=== PATIENT | female | born 2000 | race Caucasian/White ===

== ENCOUNTER → 2022-03-26 08:54 | Outpatient (BNVA) | payer OTHER, SELFPAY | PROVIDERS: Visit Provider Nurse Practitioner | DX: R73.9 Hyperglycemia, unspecified (principal); Z91.018 Allergy to other foods | CPT/HCPCS: 80053; 83036; 83516; 86003; 86008 ==

== ENCOUNTER → 2024-04-29 08:38 | Outpatient (BNVA) | payer OTHER, SELFPAY | PROVIDERS: Visit Provider Nurse Practitioner Family | DX: Z13.6 Encounter for screening for cardiovascular disorders (principal); T78.40XA Allergy, unspecified, initial encounter; X58.XXXA Exposure to other specified factors, initial encounter; Z79.899 Other long term (current) drug therapy | CPT/HCPCS: 80053; 80061; 81003; 82306; 82785; 83036; 84439; 84443; 85025; 86001; 86003; 86008; 87086 ==